=== PATIENT | male | born 1995 | race American Indian/Alaskan Native ===

== ENCOUNTER 2023-02-02 05:57 | Day surgery (SDC) | payer MEDICAID, OTHER ==
[2023-02-02] MEDS ORDERED: Dextrose 5%-0.45% NaCl 1,000 ML IV SCH (06:00)
[2023-02-02] MEDS ORDERED: Midazolam 1 MG/ML 2 ML SDV ONE (06:14)
[2023-02-02] MEDS ORDERED: fentaNYL 100 MCG/2 ML SDV ONE (06:15)
[2023-02-02] MEDS ORDERED: fentaNYL 100 MCG/2 ML SDV IV ONE ×2 (07:14→07:15)
[2023-02-02] MEDS ORDERED: Midazolam 1 MG/ML 2 ML SDV IV ONE ×2 (07:15→07:16)
[2023-02-02 08:42] VITALS: BP 116/47; PULSE 51
== END 2023-02-02 08:54 | disposition home or self-care (01) ==
LOC: DL.ENDO 05:57
PROVIDERS: ATTEND Internal Medicine Gastroenterology
DX: K80.20 Calculus of gallbladder without cholecystitis without obstruction (principal); R73.9 Hyperglycemia, unspecified; K21.9 Gastro-esophageal reflux disease without esophagitis; E66.09 Other obesity due to excess calories; Z68.42 Body mass index [BMI] 45.0-49.9, adult; Z79.899 Other long term (current) drug therapy
CPT/HCPCS: 87077; J2250; J3010; J7042

== ENCOUNTER 2023-09-30 16:13 | Emergency (ER) | payer SELFPAY ==
[2023-09-30 16:57] VITALS: BP 145/79; PULSE 72
[2023-09-30] MEDS: Dexamethasone 4 MG Tab PO ONE (17:05)
[2023-09-30] MEDS: Take Home: Amoxicillin/Clavulanate K 875-125 MG Tab, 6 Tab Pack PO ONE (17:05)
[2023-09-30] MEDS: Pseudoephedrine 30 MG Tab PO ONE (17:06)
== END 2023-09-30 17:10 | disposition home or self-care (01) ==
LOC: DL.ED 16:13
DX: J01.90 Acute sinusitis, unspecified (principal); B96.89 Other specified bacterial agents as the cause of diseases classified elsewhere; Z86.16 Personal history of COVID-19
CPT/HCPCS: 99282; 99283; A9270; J8540

== ENCOUNTER 2023-10-14 01:55 | Emergency (ER) | payer OTHER ==
[2023-10-14] MEDS: Ondansetron 4 MG/2 ML SDV IVPUSH ONE (02:15)
[2023-10-14] MEDS: Sodium Chloride 0.9% 10 ML Syringe FLUSH PRN (02:23)
[2023-10-14 02:26] LABS: BASOPHILS PERCENT AUTO 0.2 % (0.0-1.0); EOSINOPHILS PERCENT AUTO 0.7 % (1.0-3.0); HEMATOCRIT 47.9 % (40.0-54.0); HEMOGLOBIN 16.3 g/dL (14.0-18.0); LYMPHOCYTES PERCENT AUTO 14.7 % (20.5-50.1); MEAN CORPUSCULAR HEMOGLOBIN 28.2 pg (27.0-34.0); MEAN CORPUSCULAR VOLUME 82.9 fL (80-100); MONOCYTES PERCENT AUTO 6.7 % (2-8); NEUTROPHILS PERCENT AUTO 77.7 % (42.2-75.2); PLATELET COUNT,PLT 225 10^3/uL (150-450); RED BLOOD CELL COUNT 5.78 10^6/uL (4.6-6.2); WHITE BLOOD CELL COUNT,WBC 21.5 10^3/uL (5.0-10.0)
[2023-10-14 02:34] LABS: A/G RATIO 1.2; ALBUMIN 4.1 g/dL (3.4-5.0); ANION GAP 13.6 mEq/L (7-13); BILIRUBIN TOTAL 0.6 mg/dL (0.2-1.0); BUN/CREATININE RATIO 13.7 (No establ ref range); CALCIUM 9.1 mg/dL (8.5-10.1); CREATININE 0.95 mg/dL (0.70-1.30); EST CRCL DRUG DOSING (CG) 128.2 mL/min; MAGNESIUM 1.7 mg/dL (1.8-2.4); POTASSIUM,K 3.6 mmol/L (3.5-5.1); PROTEIN TOTAL,TP 7.6 g/dL (6.4-8.2)
[2023-10-14] MEDS: Lactated Ringers 1,000 ML IV ONE (02:35)
[2023-10-14] MEDS: Promethazine 25 MG/ML SDV IM ONE (03:14)
[2023-10-14] MEDS: Morphine 2 MG/ML SYRINGE IVPUSH ONE (03:21)
[2023-10-14] MEDS: Take Home: Ondansetron 4 MG Tab.DIS, 5 Tab Pack PO ONE (04:54)
[2023-10-14 05:06] VITALS: BP 150/85; PULSE 66
== END 2023-10-14 05:00 | disposition home or self-care (01) ==
LOC: DL.ED 01:55
DX: A08.4 Viral intestinal infection, unspecified (principal); Z86.16 Personal history of COVID-19
CPT/HCPCS: 36415; 80053; 83690; 83735; 85025; 96361; 96372; 96374; 96375; 99283; 99284-25; J2270; J2405; J2550; J3490; J7120; Q0162